=== PATIENT | male | born 1965 | race Caucasian/White ===

== ENCOUNTER 2024-05-23 11:19 | Emergency (ER) | payer MEDICAID, OTHER ==
[~2024-05-23] VITALS: Ht 167.6 cm; Wt 77.1 kg
[2024-05-23 11:21] VITALS: BP 126/71; PULSE 71; RESP 16; TEMP 36.7; O2SAT 98
[2024-05-23] MEDS: TETANUS, DIPHTHERIA, PERTUSSIS VAC/PF 0.5ML (>10YR OLD) IM ONE (12:06)
[2024-05-23] MEDS: BACITRACIN ZINC OINT UDPKT TOP ONE (12:07)
[2024-05-23] MEDS: LIDOCAINE HCL 1% 20ML VIAL INFIL ONE (12:19)
[2024-05-23] MEDS ORDERED: BO1 TP (12:41)
== END 2024-05-23 12:54 | disposition home or self-care (01) ==
LOC: ER 11:19
DX: S61.213A Laceration without foreign body of left middle finger without damage to nail, initial encounter (principal); W26.9XXA Contact with unspecified sharp object(s), initial encounter; Y93.89 Activity, other specified; Y92.89 Other specified places as the place of occurrence of the external cause; Y99.8 Other external cause status
CPT/HCPCS: 90715; 12002; 90471; 99283; J3490; Z7610 ×2

== ENCOUNTER 2024-05-27 12:07 | Emergency (ER) | payer MEDICAID ==
[~2024-05-27] VITALS: Ht 170.2 cm; Wt 80.0 kg
[~2024-05-27 12:07] MED LIST: BO1 TP
[2024-05-27 12:13] VITALS: BP 147/80; PULSE 73; RESP 16; TEMP 36.7; O2SAT 99
[2024-05-27] MEDS ORDERED: CEPH500C2 MT (12:55)
== END 2024-05-27 13:08 | disposition home or self-care (01) ==
LOC: ER 12:15
DX: Z48.00 Encounter for change or removal of nonsurgical wound dressing (principal); E78.00 Pure hypercholesterolemia, unspecified; I10 Essential (primary) hypertension
CPT/HCPCS: 99283